=== PATIENT | female | born 1975 | race Two or more races ===

== ENCOUNTER 2020-09-17 13:20 | Emergency (ER) | payer OTHER ==
[~2020-09-17] VITALS: Ht 152.4 cm; Wt 59.3 kg
[~2020-09-17 13:20] MED LIST: UNKNOWN PAIN MED
[2020-09-17] MEDS ORDERED: MAALOX/HYOSCYAMINE/LIDOCAINE 45 ML BTL ONE (13:41)
--- NOTE | 2020-09-17 13:53 | NUR ---
FIRST CONTACT WITH PT. PT C/O DIFFUSE ABD PAIN/UPPER BACK PAIN/N/V/BLOODY STOOL. PT STATED "I HAVE H PYLORI AND TAKING MEDS BUT ITS NOT HELPING" PT'S AOX4. RESPS EVEN AND UNLABORED. BP/SPO2 MONITORS IN PLACE. CALL LIGHT WITHIN REACH. EDMD AT BEDSIDE FOR ASSESSMENT. NICARAGUAN SPEAKER.
--- NOTE | 2020-09-17 13:54 | NUR ---
EKG DONE AT BEDSIDE AT THIS TIME BY EMT.
[2020-09-17] MEDS ORDERED: FAMOTIDINE 20 MG/2 ML ONE (13:56)
[2020-09-17] MEDS ORDERED: ONDANSETRON 2MG/ML, 2ML ONE (13:56)
[2020-09-17] MEDS ORDERED: MORPHINE SULFATE 4 MG/ML, 1ML ONE (13:56)
[2020-09-17] MEDS ORDERED: ONDANSETRON 2MG/ML, 2ML IVPush ONE (14:00)
[2020-09-17] MEDS ORDERED: SODIUM CHLORIDE FLUSH 10ML SYR IVF ONE (14:00)
[2020-09-17] MEDS ORDERED: MAALOX/HYOSCYAMINE/LIDOCAINE 45 ML BTL PO ONE (14:00)
[2020-09-17] MEDS ORDERED: FAMOTIDINE 20 MG/2 ML IVPush ONE (14:00)
[2020-09-17] MEDS ORDERED: SODIUM CHLORIDE 0.9% 1,000ML IVBOLUS ONE (14:00)
[2020-09-17] MEDS ORDERED: MORPHINE SULFATE 4 MG/ML, 1ML IVPush PRN (14:00)
--- NOTE | 2020-09-17 14:17 | NUR ---
PIV EST ON L AC WITHOUT COMPLICATIONS. PT MEDICATED PER EMAR. PT TOLERATED WELL.
[2020-09-17 14:23] LABS: BASOPHILS % (AUTO) 2 % (0-1); EOSINOPHILS % (AUTO) 2 % (1-7); LYMPHOCYTES % (AUTO) 50 % (22-44); MEAN CORPUSCULAR HEMOGLOBIN 29.3 pg (27.0-34.8); MEAN CORPUSCULAR HGB CONC 33.8 g/dL (32.4-35.8); MEAN PLATELET VOLUME 7.7 fL (7.4-10.4); MONOCYTES % (AUTO) 4 % (2-9); NEUTROPHILS % (AUTO) 42 % (42-75); PLATELET COUNT 409 x10^3/uL (130-400); RED BLOOD COUNT 4.64 x10^6/uL (3.82-5.3)
[2020-09-17 14:26] LABS: MD NO
[2020-09-17 14:34] LABS: ALANINE AMINOTRANSFERASE 30 U/L (12-78); ALBUMIN 3.6 g/dL (3.4-5.0); ANION GAP 5 mmol/L (5-15); CALCIUM 8.6 mg/dL (8.5-10.1); CHLORIDE 110 mmol/L (98-107); CREATININE 0.63 mg/dL (0.55-1.02)
[2020-09-17 14:39] LABS: ALKALINE PHOSPHATASE 99 U/L (45-117); BILIRUBIN,TOTAL 0.4 mg/dL (0.2-1.0); TOTAL PROTEIN 7.6 g/dL (6.4-8.2); TROPONIN I < 0.015 ng/mL (0.000-0.045)
--- NOTE | 2020-09-17 15:06 | NUR ---
PT BACK TO ROOM FROM CT AT THIS TIME.
[2020-09-17] MEDS ORDERED: OMNIPAQUE 350 MG/ML, 100ML BOTTLE ONE (15:14)
--- NOTE | 2020-09-17 15:44 | NUR ---
PT SLEEPING IN [facility]. RESPS EVEN AND UNLABORED. VSS.
[2020-09-17 16:08] VITALS: BP 98/65
--- NOTE | 2020-09-17 16:10 | NUR ---
PT RESTING IN [facility]. PT'S AOX4. RESPS EVEN AND UNLABORED. PT DENIES ANY NEEDS OR CONCERNS AT THIS TIME.
--- NOTE | 2020-09-17 16:46 | NUR ---
Patient/Caregiver given discharge instructions and they have confirmed that they understand the instructions.
== END 2020-09-17 16:47 | disposition home or self-care (01) ==
LOC: ED 16:40
DX: K29.50 Unspecified chronic gastritis without bleeding (principal); Z88.0 Allergy status to penicillin
CPT/HCPCS: 36415; 71045; 71260; 74177; 80053; 83690; 84484; 85025; 93005; 96361; 96374; 96375; 99285; J2270; J2405; J7030; Q9967

== ENCOUNTER 2020-11-24 12:31 | Inpatient (IN) | payer OTHER ==
[~2020-11-24] VITALS: Ht 152.4 cm; Wt 59.0 kg
--- NOTE | 2020-11-24 14:03 | NUR ---
PT AMBULATORY TO ROOM FROM TRIAGE, PT CHANGED INTO GOWN. CALL LIGHT WITHIN REACH. FAMILY AT BS. PT C/O RUQ ABD PAIN THAT RADIATES TO BACK. PT REPORTS PAIN HAS INCREASED OVER THE LAST WEEK WITH N/V & APPETITE CHANGES
[2020-11-24] MEDS ORDERED: SODIUM CHLORIDE FLUSH 10ML SYR IVF ONE (14:30)
[2020-11-24] MEDS ORDERED: ONDANSETRON 2MG/ML, 2ML IVPush ONE (14:30)
[2020-11-24] MEDS ORDERED: FAMOTIDINE 20 MG/2 ML IVPush ONE (14:30)
[2020-11-24] MEDS ORDERED: MAALOX/HYOSCYAMINE/LIDOCAINE 45 ML BTL PO ONE (14:30)
[2020-11-24] MEDS ORDERED: SODIUM CHLORIDE 0.9% 1,000ML IVBOLUS ONE ×2 (14:30→17:30)
--- NOTE | 2020-11-24 14:31 | NUR ---
PA AT BS
[2020-11-24] MEDS ORDERED: ONDANSETRON 2MG/ML, 2ML ONE (14:37)
[2020-11-24] MEDS ORDERED: MAALOX/HYOSCYAMINE/LIDOCAINE 45 ML BTL ONE (14:37)
[2020-11-24] MEDS ORDERED: FAMOTIDINE 20 MG/2 ML ONE (14:38)
[2020-11-24 15:15] LABS: BASOPHILS % (AUTO) 2 % (0-1); EOSINOPHILS % (AUTO) 2 % (1-7); LYMPHOCYTES % (AUTO) 52 % (22-44); MEAN CORPUSCULAR HEMOGLOBIN 29.9 pg (27.0-34.8); MEAN CORPUSCULAR HGB CONC 34.5 g/dL (32.4-35.8); MEAN PLATELET VOLUME 7.8 fL (7.4-10.4); MONOCYTES % (AUTO) 6 % (2-9); NEUTROPHILS % (AUTO) 38 % (42-75); PLATELET COUNT 366 x10^3/uL (130-400); RED BLOOD COUNT 4.72 x10^6/uL (3.82-5.3); RED CELL DISTRIBUTION WIDTH 12.7 % (9.6-15.2)
[2020-11-24 15:16] LABS: ALANINE AMINOTRANSFERASE 55 U/L (12-78); ALBUMIN 3.4 g/dL (3.4-5.0); ANION GAP 4 mmol/L (5-15); CALCIUM 8.1 mg/dL (8.5-10.1); CHLORIDE 111 mmol/L (98-107)
[2020-11-24 15:19] LABS: ALKALINE PHOSPHATASE 106 U/L (45-117); BILIRUBIN,TOTAL 0.3 mg/dL (0.2-1.0); CREATININE 0.56 mg/dL (0.55-1.02); TOTAL PROTEIN 7.3 g/dL (6.4-8.2)
--- NOTE | 2020-11-24 15:25 | NUR ---
PT RESTING ON GURNEY, NADN/VSS. CALL LIGHT WITHIN REACH. COMFORT MEASURES PROVIDED. FAMILY AT BS
[2020-11-24 16:04] LABS: HCG UR SG 1.016 (1.003-1.030)
[2020-11-24 16:13] LABS: MICROSCOPIC INDICATED
--- NOTE | 2020-11-24 16:57 | NUR ---
PT LAYING ON JUICE PRIETO/RAYMOND. CALL LIGHT WITHIN REACH. PT UPDATED ON POC. NO NEEDS AT THIS TIME
[2020-11-24] MEDS ORDERED: HYDROmorphone 1 MG/ML, 1ML INJ ONE (17:29)
[2020-11-24] MEDS ORDERED: HYDROmorphone 1 MG/ML, 1ML INJ IV ONE (17:30)
--- NOTE | 2020-11-24 17:42 | NUR ---
COMMUNICABLE DISEASE SPECIALIST AT
--- NOTE | 2020-11-24 17:44 | NUR ---
PT TO CT
[2020-11-24] MEDS ORDERED: OMNIPAQUE 350 MG/ML, 100ML BOTTLE ONE (17:58)
--- NOTE | 2020-11-24 18:16 | NUR ---
Pt to be admitted to ONC, room 438. Report called to
[2020-11-24] MEDS ORDERED: ACET325C6 PO (18:49)
[2020-11-24 18:53] VITALS: BP 101/69
[2020-11-24] MEDS ORDERED: HYDROmorphone 2 MG/ML, 1ML IVPush PRN (19:00)
[2020-11-24] MEDS ORDERED: BISACODYL 10 MG SUPP PR PRN (19:00)
[2020-11-24] MEDS ORDERED: POLYETHYLENE GLYCOL 17 GM PACKET PO PRN (19:00)
[2020-11-24] MEDS: FAMOTIDINE 20 MG/2 ML IVPush SCH (20:19)
[2020-11-24] MEDS: SODIUM CHLORIDE FLUSH 10ML SYR IVF SCH (21:00)
[2020-11-24] MEDS: CEFTRIAXONE 1,000 MG in DEXTROSE 5% 50 ML IVPB SCH (21:25)
[2020-11-25] MEDS: OXYcodone IR 5MG TABLET PO PRN ×2 (01:27→15:54)
[2020-11-25 01:28] VITALS: BP 96/68
[2020-11-25 05:06] LABS: BASOPHILS % (AUTO) 1 % (0-1); EOSINOPHILS % (AUTO) 4 % (1-7); LYMPHOCYTES % (AUTO) 47 % (22-44); MEAN CORPUSCULAR HEMOGLOBIN 30.1 pg (27.0-34.8); MEAN CORPUSCULAR HGB CONC 34.3 g/dL (32.4-35.8); MEAN PLATELET VOLUME 7.7 fL (7.4-10.4); MONOCYTES % (AUTO) 5 % (2-9); NEUTROPHILS % (AUTO) 43 % (42-75); PLATELET COUNT 321 x10^3/uL (130-400); RED BLOOD COUNT 4.19 x10^6/uL (3.82-5.3); RED CELL DISTRIBUTION WIDTH 12.4 % (9.6-15.2)
[2020-11-25 05:19] LABS: CHLORIDE 112 mmol/L (98-107)
[2020-11-25 05:23] LABS: ANION GAP 5 mmol/L (5-15); CALCIUM 7.6 mg/dL (8.5-10.1); CREATININE 0.55 mg/dL (0.55-1.02)
[2020-11-25 07:00] VITALS: BP 101/69
[2020-11-25] MEDS: FAMOTIDINE 20 MG/2 ML IVPush SCH ×2 (08:52→21:11)
[2020-11-25] MEDS: SENNA/DOCUSATE TABLET PO SCH (08:52)
[2020-11-25] MEDS: SODIUM CHLORIDE FLUSH 10ML SYR IVF SCH ×2 (08:52→21:11)
[2020-11-25] MEDS: ONDANSETRON 2MG/ML, 2ML IVPush PRN ×2 (09:05→21:11)
[2020-11-25] MEDS ORDERED: DIPHENHYDRAMINE 25 MG CAPSULE PO PRN (10:30)
[2020-11-25] MEDS: ACETAMINOPHEN 325 MG TABLET PO PRN (12:18)
[2020-11-25 14:51] VITALS: BP 104/71
[2020-11-25] MEDS: SUCRALFATE 1 GM/10 ML UDC PO SCH ×2 (15:54→21:11)
[2020-11-25 19:19] VITALS: BP 100/70
[2020-11-25] MEDS: CEFTRIAXONE 1,000 MG in DEXTROSE 5% 50 ML IVPB SCH (21:11)
[2020-11-26 02:02] VITALS: BP 103/69
[2020-11-26 07:07] VITALS: BP 92/60
[2020-11-26] MEDS: SUCRALFATE 1 GM/10 ML UDC PO SCH ×4 (08:03→21:07)
[2020-11-26] MEDS: SENNA/DOCUSATE TABLET PO SCH (08:03)
[2020-11-26] MEDS: SODIUM CHLORIDE FLUSH 10ML SYR IVF SCH ×2 (08:04→21:07)
[2020-11-26] MEDS: FAMOTIDINE 20 MG/2 ML IVPush SCH ×2 (08:04→21:07)
[2020-11-26] MEDS ORDERED: CHLORHEXIDINE 15 ML UDC PO ONE (12:30)
[2020-11-26] MEDS ORDERED: PROPOFOL 10 MG/ML, 20ML ONE (13:09)
[2020-11-26] MEDS ORDERED: OXYcodone 5 MG/5 ML ORAL.SOL UDC PO PRN (13:30)
[2020-11-26] MEDS ORDERED: FENTANYL PF 100 MCG/2ML IV PRN (13:30)
[2020-11-26] MEDS ORDERED: ACETAMINOPHEN 325 MG TABLET PO PRN (13:30)
[2020-11-26 14:42] VITALS: BP 90/67
[2020-11-26] MEDS: ONDANSETRON 2MG/ML, 2ML IVPush PRN (15:35)
[2020-11-26] MEDS: OXYcodone IR 5MG TABLET PO PRN (17:22)
[2020-11-26 18:21] VITALS: BP 103/72
[2020-11-26] MEDS: CEFTRIAXONE 1,000 MG in DEXTROSE 5% 50 ML IVPB SCH (21:07)
[2020-11-27 01:56] VITALS: BP 96/68
[2020-11-27 05:46] LABS: INTERNATIONAL NORMALIZED RATIO 0.99 (0.93-1.1); PROTHROMBIN TIME 10.6 Seconds (9.6-11.5)
[2020-11-27 05:48] LABS: MEAN CORPUSCULAR HEMOGLOBIN 29.7 pg (27.0-34.8); MEAN CORPUSCULAR HGB CONC 33.8 g/dL (32.4-35.8); MEAN PLATELET VOLUME 7.7 fL (7.4-10.4); PLATELET COUNT 368 x10^3/uL (130-400); RED BLOOD COUNT 4.58 x10^6/uL (3.82-5.3); RED CELL DISTRIBUTION WIDTH 12.7 % (9.6-15.2)
[2020-11-27 05:50] LABS: CHLORIDE 108 mmol/L (98-107)
[2020-11-27 05:54] LABS: ANION GAP 8 mmol/L (5-15); CALCIUM 8.4 mg/dL (8.5-10.1); CREATININE 0.72 mg/dL (0.55-1.02)
[2020-11-27 06:30] VITALS: BP 96/66
[2020-11-27 06:59] LABS: <PLATELET ESTIMATE> ADEQUATE; <PLT MORPHOLOGY> NORMAL PLT MORPH; <RBC MORPHOLOGY> NORMAL; EOS#(MANUAL) 0.14 x10^3/uL (0.0-0.4); EOS% (MANUAL) 3 % (1-7); LYMPHS% (MANUAL) 51 % (22-44); MONOS#(MANUAL) 0.27 x10^3/uL (0.3-2.7); MONOS% (MANUAL) 6 % (2-9); REACTIVE LYMPHS # (MANUAL) 0.36 x10^3/uL (0-0); REACTIVE LYMPHS % (MANUAL) 8 % (0-0); SEG#(MANUAL) 1.44 x10^3/uL (1.8-6.8); SEGS% (MANUAL) 32 % (42-75)
[2020-11-27] MEDS: SUCRALFATE 1 GM/10 ML UDC PO SCH ×4 (07:00→20:49)
[2020-11-27] MEDS: SENNA/DOCUSATE TABLET PO SCH (07:00)
[2020-11-27] MEDS: FAMOTIDINE 20 MG/2 ML IVPush SCH (08:01)
[2020-11-27] MEDS: SODIUM CHLORIDE FLUSH 10ML SYR IVF SCH ×2 (08:02→20:50)
[2020-11-27] MEDS: ACETAMINOPHEN 325 MG TABLET PO PRN (10:59)
[2020-11-27 13:11] VITALS: BP 103/71
[2020-11-27] MEDS ORDERED: GADOTERATE 7.5 MMOL/15 ML VIAL ONE (15:06)
[2020-11-27] MEDS: OXYcodone IR 5MG TABLET PO PRN ×2 (15:54→22:56)
[2020-11-27 19:02] VITALS: BP 105/71
[2020-11-27] MEDS: FAMOTIDINE 20 MG TABLET PO SCH (20:49)
[2020-11-27] MEDS: ONDANSETRON 2MG/ML, 2ML IVPush PRN (22:56)
[2020-11-28 01:42] VITALS: BP 100/68
[2020-11-28] MEDS: SUCRALFATE 1 GM/10 ML UDC PO SCH ×4 (06:05→21:00)
[2020-11-28 07:51] VITALS: BP 95/63
[2020-11-28] MEDS: SENNA/DOCUSATE TABLET PO SCH (08:39)
[2020-11-28] MEDS: SODIUM CHLORIDE FLUSH 10ML SYR IVF SCH ×2 (08:39→19:58)
[2020-11-28] MEDS: FAMOTIDINE 20 MG TABLET PO SCH ×2 (08:39→19:57)
[2020-11-28] MEDS: ACETAMINOPHEN 325 MG TABLET PO PRN (08:43)
[2020-11-28] MEDS: OXYcodone IR 5MG TABLET PO PRN (11:29)
[2020-11-28] MEDS ORDERED: BUTALB/APAP/CAFFEINE 50MG/325MG/40MG PO PRN (13:00)
[2020-11-28 13:04] VITALS: BP 108/77
[2020-11-28] MEDS: ONDANSETRON 2MG/ML, 2ML IVPush PRN ×2 (16:40→22:50)
[2020-11-28 19:19] VITALS: BP 108/75
[2020-11-29 00:54] VITALS: BP 99/63
[2020-11-29 07:24] VITALS: BP 98/69
[2020-11-29] MEDS: SUCRALFATE 1 GM/10 ML UDC PO SCH ×4 (07:37→22:38)
[2020-11-29] MEDS ORDERED: SINCALIDE (KINEVAC) 5 MCG ONE (08:18)
[2020-11-29] MEDS: FAMOTIDINE 20 MG TABLET PO SCH ×2 (09:37→20:34)
[2020-11-29] MEDS: SODIUM CHLORIDE FLUSH 10ML SYR IVF SCH ×2 (09:37→20:35)
[2020-11-29] MEDS: SENNA/DOCUSATE TABLET PO SCH (09:37)
[2020-11-29] MEDS: OXYcodone IR 5MG TABLET PO PRN ×2 (09:38→22:47)
[2020-11-29 12:36] VITALS: BP 104/73
[2020-11-29] MEDS: ONDANSETRON 2MG/ML, 2ML IVPush PRN ×2 (16:28→22:38)
[2020-11-29 19:26] VITALS: BP 105/72
[2020-11-30 00:34] VITALS: BP 99/65
[2020-11-30] MEDS: SUCRALFATE 1 GM/10 ML UDC PO SCH ×4 (04:39→20:43)
[2020-11-30 04:42] LABS: BASOPHILS % (AUTO) 1 % (0-1); EOSINOPHILS % (AUTO) 4 % (1-7); LYMPHOCYTES % (AUTO) 57 % (22-44); MEAN CORPUSCULAR HEMOGLOBIN 29.7 pg (27.0-34.8); MEAN CORPUSCULAR HGB CONC 34.5 g/dL (32.4-35.8); MEAN PLATELET VOLUME 7.8 fL (7.4-10.4); MONOCYTES % (AUTO) 7 % (2-9); NEUTROPHILS % (AUTO) 31 % (42-75); PLATELET COUNT 343 x10^3/uL (130-400); RED BLOOD COUNT 4.75 x10^6/uL (3.82-5.3); RED CELL DISTRIBUTION WIDTH 12.5 % (9.6-15.2)
[2020-11-30 04:52] LABS: ALBUMIN 3.2 g/dL (3.4-5.0); ANION GAP 7 mmol/L (5-15); CALCIUM 8.6 mg/dL (8.5-10.1); CHLORIDE 106 mmol/L (98-107)
[2020-11-30 04:57] LABS: ALANINE AMINOTRANSFERASE 30 U/L (12-78); ALKALINE PHOSPHATASE 90 U/L (45-117); BILIRUBIN,TOTAL 0.4 mg/dL (0.2-1.0); CREATININE 0.72 mg/dL (0.55-1.02); TOTAL PROTEIN 7.2 g/dL (6.4-8.2)
[2020-11-30 06:59] VITALS: BP 93/53
[2020-11-30] MEDS: SENNA/DOCUSATE TABLET PO SCH (07:14)
[2020-11-30] MEDS: FAMOTIDINE 20 MG TABLET PO SCH ×3 (07:14→21:55)
[2020-11-30] MEDS ORDERED: CHLORHEXIDINE 15 ML UDC ONE (08:34)
[2020-11-30] MEDS ORDERED: CHLORHEXIDINE 15 ML UDC PO ONE (09:00)
[2020-11-30] MEDS: SODIUM CHLORIDE FLUSH 10ML SYR IVF SCH ×2 (09:00→20:45)
[2020-11-30] MEDS ORDERED: FENTANYL PF 250 MCG/5ML ONE (09:11)
[2020-11-30] MEDS ORDERED: MIDAZOLAM 1 MG/ML, 2ML ONE (09:11)
[2020-11-30] MEDS ORDERED: BUPIVACAINE/PF 0.5% ONE (09:15)
[2020-11-30] MEDS ORDERED: EPINEPHRINE 1 MG/ML, 1ML ONE (09:16)
[2020-11-30] MEDS ORDERED: PROPOFOL 50 ML ONE ×2 (09:19→09:58)
[2020-11-30] MEDS ORDERED: ONDANSETRON 2MG/ML, 2ML IVPush PRN ×2 (09:30→13:00)
[2020-11-30] MEDS ORDERED: EPHEDRINE 50 MG/ML, 1ML IVPush PRN (09:30)
[2020-11-30] MEDS ORDERED: PROMETHAZINE 25 MG/ML, 1ML IVPush PRN (09:30)
[2020-11-30] MEDS ORDERED: LORazepam 2 MG/ML, 1ML IVPush PRN (09:30)
[2020-11-30] MEDS ORDERED: hydrALAzine 20 MG/ML, 1ML IV PRN (09:30)
[2020-11-30] MEDS ORDERED: LABETALOL 5MG/ML, 20ML IV PRN (09:30)
[2020-11-30] MEDS ORDERED: ACETAMINOPHEN 325 MG TABLET PO PRN ×2 (09:30→12:30)
[2020-11-30] MEDS ORDERED: METHOCARBAMOL 1,000 MG in DEXTROSE 5% 100 ML IV PRN (09:30)
[2020-11-30] MEDS ORDERED: OXYcodone 5 MG/5 ML ORAL.SOL UDC PO PRN (09:30)
[2020-11-30] MEDS ORDERED: HYDROmorphone 1 MG/ML, 1ML INJ IVPush PRN (09:30)
[2020-11-30] MEDS ORDERED: MEPERIDINE/PF 25MG/0.5ML IVPush PRN (09:30)
[2020-11-30] MEDS ORDERED: FENTANYL PF 100 MCG/2ML ONE (10:48)
[2020-11-30] MEDS: FENTANYL PF 100 MCG/2ML IV PRN ×3 (10:50→11:25)
[2020-11-30] MEDS ORDERED: ACETAMINOPHEN 650 MG/20.3 ML UDC ONE (11:10)
[2020-11-30] MEDS ORDERED: OXYcodone 5 MG/5 ML ORAL.SOL UDC ONE (11:11)
[2020-11-30] MEDS: ACETAMINOPHEN 325 MG TABLET PO PRN ×2 (11:13→20:46)
[2020-11-30 12:29] VITALS: BP 101/70
[2020-11-30] MEDS ORDERED: BISACODYL 10 MG SUPP PR PRN (12:30)
[2020-11-30] MEDS ORDERED: MORPHINE SULFATE 4 MG/ML, 1ML IVPush PRN (12:30)
[2020-11-30] MEDS: ONDANSETRON 2MG/ML, 2ML IVPush PRN (12:58)
[2020-11-30] MEDS ORDERED: DIPHENHYDRAMINE 25 MG CAPSULE PO PRN (13:00)
[2020-11-30] MEDS ORDERED: OXYcodone IR 5MG TABLET PO PRN (13:00)
[2020-11-30] MEDS ORDERED: BUTALB/APAP/CAFFEINE 50MG/325MG/40MG PO PRN (13:00)
[2020-11-30] MEDS ORDERED: POLYETHYLENE GLYCOL 17 GM PACKET PO PRN (13:00)
[2020-11-30] MEDS ORDERED: SUCRALFATE 1 GM TABLET PO SCH (16:00)
[2020-11-30] MEDS: OXYcodone IR 5MG TABLET PO PRN ×2 (16:48→21:54)
[2020-11-30 20:07] VITALS: BP 100/69
[2020-11-30] MEDS: SODIUM CHLORIDE IVF SCH (21:00)
[2020-12-01 02:07] VITALS: BP 101/66
[2020-12-01] MEDS: ONDANSETRON 2MG/ML, 2ML IVPush PRN (02:43)
[2020-12-01] MEDS: OXYcodone IR 5MG TABLET PO PRN (03:05)
[2020-12-01] MEDS: FAMOTIDINE 20 MG TABLET PO SCH (08:10)
[2020-12-01] MEDS: SODIUM CHLORIDE IVF SCH (08:11)
[2020-12-01] MEDS ORDERED: SENNA/DOCUSATE TABLET PO SCH (09:00)
[2020-12-01 09:43] VITALS: BP 99/66
[2020-12-01] MEDS ORDERED: OXYC-302 PO (11:09)
[2020-12-01] MEDS ORDERED: ONDA4TAB7 PO (11:09)
[2020-12-01] MEDS ORDERED: FAMO20TA7 PO ×3 (12:34→12:43)
== END 2020-12-01 14:28 | disposition home or self-care (01) | DRG 418 ==
LOC: ED 15:43 → EDIP 17:21 → 4NW 18:40
PROVIDERS: ADMIT Hospitalist; ATTEND Internal Medicine
PROC: 0DB68ZX Excision of Stomach, Via Natural or Artificial Opening Endoscopic, Diagnostic (ICD-10-PCS; 2020-11-26)
PROC: 0FT44ZZ Resection of Gallbladder, Percutaneous Endoscopic Approach (ICD-10-PCS; principal; 2020-11-30 09:30)
DX: K80.44 Calculus of bile duct with chronic cholecystitis without obstruction (principal); N39.0 Urinary tract infection, site not specified; Z20.822 Contact with and (suspected) exposure to COVID-19; D18.03 Hemangioma of intra-abdominal structures; D72.819 Decreased white blood cell count, unspecified; G89.29 Other chronic pain; K29.70 Gastritis, unspecified, without bleeding; K66.0 Peritoneal adhesions (postprocedural) (postinfection); R16.0 Hepatomegaly, not elsewhere classified; K76.9 Liver disease, unspecified; Z86.19 Personal history of other infectious and parasitic diseases; Z90.710 Acquired absence of both cervix and uterus; Z79.899 Other long term (current) drug therapy; Z79.891 Long term (current) use of opiate analgesic; Z79.01 Long term (current) use of anticoagulants; Z88.0 Allergy status to penicillin; Z88.1 Allergy status to other antibiotic agents; Z88.8 Allergy status to other drugs, medicaments and biological substances; Z88.5 Allergy status to narcotic agent
CPT/HCPCS: 36415; 87106; 96361; 96374; 96375; 99285; S0020; 74177; 74183; 76700; 78227; 80048; 80053; 81001; 81025; 83690; 83735; 84100; 85025; 85610; 87086; 87635; 88304; 88305; 88342; G0378; J0171; J0696; J1170; J2250; J2405; J2704; J3010; Q9967; A9537; A9575; J2270; J2805; J7030; Q0163